=== PATIENT | female | born 2005 | race Caucasian/White ===

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

== ENCOUNTER → 2024-11-22 | Outpatient (CLI) | payer OTHER ==
--- NOTE | 2024-11-23 07:46 | US ---
EXAMINATION TYPE: US pelvic complete DATE OF EXAM: 11/22/2024 COMPARISON: 08/30/24 CLINICAL INDICATION: Female, 19 years old with history of R93.89 ABN PELV US; follow up TECHNIQUE: Transabdominal (TA). Transabdominal grayscale sonographic images of the pelvis were acquired. Doppler imaging: Not performed. FINDINGS: Date of LMP: 11/21/24 EXAM MEASUREMENTS: Uterus: 5.6 x 4.0 x 3.1 cm Endometrial Stripe: 0.4 cm Right Ovary: 2.0 x 2.0 x 1.6 cm Left Ovary: 3.9 x 2.4 x 1.9 cm 1. Uterus: Anteverted wnl 2. Endometrium: wnl 3. Right Ovary: cystic area seen measuring 2.6 x 2.7 x 2.2cm 4. Left Ovary: cystic area seen measuring 1.8 x 1.6 x 1.5cm 5. Bilateral Adnexa: wnl 6. Posterior cul-de-sac: wnl IMPRESSION: Small follicular cysts seen bilaterally. O-RADS 2021 [email or web address] [email or web address], , 11/23/2024 7:43 AM
== END | disposition home or self-care (01) ==
LOC: RADUSWWP 15:49
PROVIDERS: ATTEND Pediatrics
DX: N83.02 Follicular cyst of left ovary (principal); N83.01 Follicular cyst of right ovary; R93.89 Abnormal findings on diagnostic imaging of other specified body structures
CPT/HCPCS: 76856